=== PATIENT | female | born 1970 | race Caucasian/White ===

== ENCOUNTER → 2023-05-27 15:43 | Outpatient (CLI) | payer BC, SELFPAY ==
--- NOTE | 2023-05-27 | DI.MRI.S_ITS ---
PROCEDURE: MR LUMBAR SPINE WO CON INDICATIONS: Spondylolisthesis, lumbar region TECHNIQUE: Noncontrast sagittal T1 spin echo and T2 fast echo, sagittal STIR, and T2 fast spin echo through the lumbar spine. In cases with scoliosis, additional coronal T2 fast spin echo may be performed. COMPARISON: None. FINDINGS: Image quality: Excellent. Alignment and Curvature: Levoscoliosis of the lumbar spine with a Blanton angle of 23?. Bone Marrow: Marrow is of normal overall signal. No acute vertebral body compression fractures. Spinal Cord: Conus medullaris terminates at the L1 level. Visualized cord demonstrates normal signal and size. Paraspinous Soft Tissues: No paravertebral masses. T12-L1: Perineural cysts are noted bilaterally. No significant disc bulge. The foramina and central canal are patent. L1-L2: The disc is mildly desiccated with a diffuse disc bulge. The facets and ligamentum flavum are hypertrophic. The foramina and central canal are patent. L2-L3: The disc is mildly desiccated with a diffuse disc bulge. The facets and ligamentum flavum are hypertrophic. Mild bilateral foraminal stenosis. Mild central canal stenosis. L3-L4: The disc is desiccated consistent with degeneration. With a diffuse disc bulge and grade 1 anterolisthesis. The facets demonstrate facet arthrosis and hypertrophy. Moderate right and mild left foraminal stenosis. The central canal has moderate stenosis. L4-L5: The disc is desiccated consistent with degeneration. There is a diffuse left disc bulge. Facet hypertrophy and disc osteophytes on the left cause severe left foraminal stenosis. The right foramen is patent. The central canal is patent. L5-S1: The disc is mildly desiccated with a diffuse disc bulge. There is a diffuse right disc bulge. Facet hypertrophy and disc osteophytes on the right cause severe right foraminal stenosis. The left foramen is patent. The central canal is patent. IMPRESSION: 1. Multilevel lumbar spondylosis causing foraminal and central canal stenosis. 2. Moderate central canal stenosis at L3-4. 3. Levoscoliosis. Dictated by: Jefferson Alvarez M.D. on 05/28/2023 at 9:02 Approved by: Jefferson Alvarez M.D. on 05/28/2023 at 9:14
== END ==
PROVIDERS: PCP Orthopaedic Surgery Orthopaedic Trauma; Referring Provider Orthopaedic Surgery Orthopaedic Surgery of the Spine; Visit Provider Orthopaedic Surgery Orthopaedic Surgery of the Spine
DX: M43.16 Spondylolisthesis, lumbar region (principal); M47.816 Spondylosis without myelopathy or radiculopathy, lumbar region; M47.817 Spondylosis without myelopathy or radiculopathy, lumbosacral region; M48.061 Spinal stenosis, lumbar region without neurogenic claudication; M48.07 Spinal stenosis, lumbosacral region; M41.9 Scoliosis, unspecified
CPT/HCPCS: 72148